=== PATIENT | male | born 1975 | race African-American/Black ===

== ENCOUNTER 2018-11-28 22:26 | Emergency (ER) | payer SELFPAY ==
[2018-11-28] MEDS ORDERED: Ketorolac Tromethamine 30 MG/ML VIAL ONE (22:49)
[2018-11-28 23:00] LABS: Hemoglobin 13.4 g/dL (14.0-18.0); Mean Corpuscular HGB CONC 29.3 g/dL (32.0-36.0); Mean Corpuscular Hemoglobin 24.9 pg (27.0-31.0); Mean Platelet Volume 13.8 fL (7.4-10.4); Platelet Count 258 thou/uL (130-400); RBC Distribution Width 15.5 % (11.5-14.5); Red Blood Cell (RBC) Count 5.41 mill/uL (4.70-6.10)
[2018-11-28 23:01] LABS: Anisocytosis SLIGHT = 6-15 cells (100X) (0-5/hpf); Eosinophils 2 % (0-10); Hypochromia SLIGHT = 6-15 cells (100X) (0-5/hpf); Lymphocytes 16 % (21-51); MDiff Complete? YES; Monocytes 6 % (0-10); Neutrophil 76 % (42-75); Platelet Morphology Comment Appears Adequate
[2018-11-28 23:08] LABS: ALT (SGPT) 28 U/L (8-55); AST (SGOT) 35 U/L (5-34); Albumin 4.5 g/dL (3.5-5.0); Alkaline Phosphatase 43 U/L (40-150); Anion Gap 23 mmol/L (10-20); BUN (Urea Nitrogen) 25 mg/dL (8.9-20.6); Bilirubin, Total 0.4 mg/dL (0.2-1.2); Calc. Creatinine Clearance 0 mL/min (70-130); Carbon Dioxide 24 mmol/L (22-29); Chloride 94 mmol/L (98-107); Estimated GFR-MDRD 50; Globulin 4.3 g/dL (2.4-3.5); Glucose 228 mg/dL (70-105); Lipase 43 U/L (8-78); Potassium 4.7 mmol/L (3.5-5.1); Protein, Total 8.8 g/dL (6.0-8.3); Sodium 136 mmol/L (136-145)
--- NOTE | 2018-11-28 23:54 | CT ---
CT abdomen noncontrast CT pelvis noncontrast: (Urolithiasis protocol) DATE: 11/28/2018 HISTORY: 43-year-old male with lower abdominal pain COMPARISON: None available TECHNIQUE: IV injection of iodinated contrast media: None Oral contrast media: None FINDINGS: Other than for urolithiasis, the lack of IV and oral contrast limits the evaluation. There is mild dilation of left renal collecting system and mild edema in the left perirenal space. No renal, ureteral, or bladder calculus is identified. There is mild dilation of left ureter to the UVJ. Within the limitations of a noncontrast scan, no abnormality identified involving right kidney, bladder, abdominal aorta, liver, pancreas, adrenals, spleen, or appendix. No small bowel dilation. No colonic diverticulitis. No pneumoperitoneum or ascites. Lung bases grossly clear. IMPRESSION: 1) mild left hydroureteronephrosis and mild left perirenal edema, without calculus. 2) perhaps the patient recently passed a left ureteral calculus.
[2018-11-29 00:14] LABS: Bilirubin Small (Negative); Blood, Urine Large (Negative); Clarity Slightly Cloudy (Clear); Glucose, Urine (Dipstick) 100 mg/dL (Negative); Leukocyte Negative (Negative); Nitrite Negative (Negative); Protein, Urine (Dipstick) > or equal to 300 mg/dL (Neg-Trace); Urobilinogen 0.2 mg/dL (0.2-1.0); pH, Urine 5.5 (5.0-9.0)
[2018-11-29 00:16] LABS: Bacteria/HPF None Seen HPF (None Seen); RBC/HPF GREATER THAN 50-TNTC HPF (0-3)
== END 2018-11-29 00:34 | disposition home or self-care (01) ==
LOC: NAV ERS 22:26
DX: N13.2 Hydronephrosis with renal and ureteral calculous obstruction (principal)
CPT/HCPCS: 36415; 74176; 80053; 81003; 81015; 83690; 85025; 96374; J1885

== ENCOUNTER 2020-03-19 17:34 | Emergency (ER) | payer OTHER, SELFPAY ==
[2020-03-19] MEDS ORDERED: Ibuprofen 200 MG TAB ONE (17:54)
[2020-03-19] MEDS ORDERED: Cyclobenzaprine 10 MG TAB ONE (17:54)
== END 2020-03-19 18:05 | disposition home or self-care (01) ==
LOC: NAV ERS 17:34
DX: M54.2 Cervicalgia (principal); I10 Essential (primary) hypertension
CPT/HCPCS: 99283

== ENCOUNTER 2022-05-12 17:19 | Emergency (ER) | payer OTHER | END 2022-05-12 18:48 | disposition home or self-care (01) | LOC: NAV ERS 17:19 | DX: J10.1 Influenza due to other identified influenza virus with other respiratory manifestations (principal); I10 Essential (primary) hypertension | CPT/HCPCS: 87804; 99283 ==

== ENCOUNTER 2023-03-02 01:12 | Emergency (ER) | payer BC ==
[2023-03-02] MEDS ORDERED: methylPREDNISolone Sod Succ/PF 125 MG/2 ML VIAL ONE (01:24)
[2023-03-02] MEDS ORDERED: diphenhydrAMINE 50 MG/ML VIAL ONE ×2 (01:24→07:55)
[2023-03-02 01:35] LABS: Hematocrit 40.8 % (42.0-52.0); Hemoglobin 12.5 g/dL (14.0-18.0); Red Blood Cell (RBC) Count 4.93 mill/uL (4.70-6.10); White Blood Cell (WBC) Count 16.9 10x3/uL (4.8-10.8)
[2023-03-02 01:36] LABS: #Basophils 0.3 thou/uL (0.0-0.2); #Eosinphils 0.5 thou/uL (0.0-0.7); #Lymphocytes 4.4 thou/uL (1.20-3.40); #Monocytes 1.5 thou/uL (0.11-0.59); #Neutrophils 10.2 thou/uL (1.40-6.50); %Basophils 1.6 % (0.0-1.0); %Eosinophils 3.2 % (0.0-10.0); %Lymphocytes 25.8 % (21.0-51.0); %Monocytes 8.9 % (0.0-10.0); %Neutrophils 60.5 % (42.0-75.0); Mean Corpuscular HGB CONC 30.6 g/dL (32.0-36.0); Mean Corpuscular Hemoglobin 25.3 pg (27.0-31.0); Mean Corpuscular Volume 82.8 fl (78.0-98.0); Platelet Count 246 10x3/uL (130-400); RBC Distribution Width 16.1 % (11.5-14.5)
[2023-03-02 01:40] LABS: Prothrombin Time 13.2 sec (12.0-14.7)
[2023-03-02 01:41] LABS: PTT 32.4 sec (22.9-36.1)
[2023-03-02] MEDS ORDERED: EPINEPHrine 1 MG/ML AMP ONE (01:42)
[2023-03-02 01:51] LABS: Troponin I Less than 0.010 ng/mL (< 0.028)
[2023-03-02 01:52] LABS: ALT (SGPT) 32 U/L (8-55); AST (SGOT) 18 U/L (5-34); Albumin 4.4 g/dL (3.5-5.0); Alkaline Phosphatase 56 U/L (40-110); Anion Gap 13 mmol/L (10-20); BUN (Urea Nitrogen) 36 mg/dL (8.9-20.6); Bilirubin, Total 0.4 mg/dL (0.2-1.2); Calc. Creatinine Clearance 0 mL/min (70-130); Calcium 10.3 mg/dL (7.8-10.44); Carbon Dioxide 26 mmol/L (22-29); Chloride 100 mmol/L (98-107); Estimated GFR 39; Globulin 4.6 g/dL (2.4-3.5); Glucose 175 mg/dL (70-105); Potassium 4.2 mmol/L (3.5-5.1); Sodium 135 mmol/L (136-145)
[2023-03-02] MEDS ORDERED: Famotidine/PF 20 mg/2ml Vial ONE (02:22)
[2023-03-02] MEDS ORDERED: Lactated Ringer's 1,000 ML ONE (02:28)
[2023-03-02] MEDS ORDERED: Sodium Chloride 0.9% 1,000 ML ONE (02:28)
[2023-03-02] MEDS ORDERED: methylPREDNISolone Sod Succ 40 MG VIAL ONE (04:46)
[2023-03-02 05:01] LABS: Troponin I Less than 0.010 ng/mL (< 0.028)
[2023-03-02] MEDS ORDERED: glipiZIDE 5 MG TAB PO SCH (08:00)
[2023-03-02 08:40] LABS: Anion Gap 17 mmol/L (10-20); BUN (Urea Nitrogen) 36 mg/dL (8.9-20.6); Calc. Creatinine Clearance 0 mL/min (70-130); Calcium 9.6 mg/dL (7.8-10.44); Carbon Dioxide 20 mmol/L (22-29); Chloride 100 mmol/L (98-107); Estimated GFR 42; Glucose 355 mg/dL (70-105); Sodium 132 mmol/L (136-145)
[2023-03-02 08:42] LABS: #Lymphocytes 1.6 thou/uL (1.20-3.40); #Monocytes 0.2 thou/uL (0.11-0.59); #Neutrophils 17.8 thou/uL (1.40-6.50); %Basophils 0.2 % (0.0-1.0); %Eosinophils 0.1 % (0.0-10.0); %Monocytes 0.8 % (0.0-10.0); %Neutrophils 90.9 % (42.0-75.0); Hematocrit 35.4 % (42.0-52.0); Mean Corpuscular HGB CONC 30.9 g/dL (32.0-36.0); Mean Corpuscular Hemoglobin 25.5 pg (27.0-31.0); Mean Corpuscular Volume 82.4 fl (78.0-98.0); Mean Platelet Volume 13.3 fL (7.4-10.4); Platelet Count 224 10x3/uL (130-400); RBC Distribution Width 16.1 % (11.5-14.5); White Blood Cell (WBC) Count 19.6 10x3/uL (4.8-10.8)
[2023-03-02 08:48] LABS: Troponin I Less than 0.010 ng/mL (< 0.028)
[2023-03-02] MEDS ORDERED: Insulin Regular 300 UNITS/3 ML VIAL ONE (08:55)
== END 2023-03-02 10:00 | disposition home or self-care (01) ==
LOC: NAV ERS 01:12
DX: T78.3XXA Angioneurotic edema, initial encounter (principal); D64.9 Anemia, unspecified; I12.9 Hypertensive chronic kidney disease with stage 1 through stage 4 chronic kidney disease, or unspecified chronic kidney disease; N18.9 Chronic kidney disease, unspecified; E11.22 Type 2 diabetes mellitus with diabetic chronic kidney disease; Z79.899 Other long term (current) drug therapy; Z79.84 Long term (current) use of oral hypoglycemic drugs
CPT/HCPCS: 36416; 71045; 80053; 84484; 85025; 85610; 85730; 92950; 93005; 96361; 96372; 96374; 96375; 96376; J0171; J1200; J1815; J2920; J2930; J7050; J7120; S0028